=== PATIENT | female | born 1970 | race African-American/Black ===

== ENCOUNTER 2024-06-26 09:08 | Outpatient (CLI) | payer OTHER, SELFPAY ==
--- NOTE | ~2024-06-26 | US_ITS ---
Pelvic ultrasound. Clinical History: Pelvic pain Technique: Realtime transabdominal and transvaginal scanning of the pelvis was performed. Color flow Doppler and Doppler spectral analysis were performed. Findings: The uterus is anteverted, and measures approximately 12.3 x 4.8 x 5.5 cm in size. The endo metrial stripe has a thickness of approximately 7 mm. Probable fibroid at the fundus measures 5.9 x 5 .7 x 6.0 cm. Additional smaller posterior intramural fibroid measures 1.9 cm in diameter. Additional probable posterior fibroid measures up to 4.0 cm in diameter. The right ovary measures 3.1 x 2.5 x 3.1 cm. No significant right ovarian or adnexal mass is seen. The left ovary is not visualized. No significant left ovarian or adnexal mass is seen. There is no evidence of free fluid in the cul de sac. Impression: Multiple uterine fibroids, as detailed above. Reviewed, dictated and finalized at location . Impression: Multiple uterine fibroids, as detailed above.
== END 2024-06-26 09:09 | disposition home or self-care (01) ==
LOC: MICIMG 09:11
PROVIDERS: PCP Family Medicine; Visit Provider Obstetrics & Gynecology Gynecology
DX: D25.1 Intramural leiomyoma of uterus (principal)
CPT/HCPCS: 76830; 76856